=== PATIENT | male | born 1960 | race Caucasian/White ===

== ENCOUNTER 2016-04-18 07:51 | Day surgery (SDC) | payer OTHER ==
[~2016-04-18] VITALS: Ht 170.2 cm; Wt 75.0 kg
[~2016-04-18 07:51] MED LIST: DESO15OI TOP; SIMV20TA4 PO; Sodium Chloride LOK Flush 10 mL Syringe IV PRN; fentaNYL-PF 50 mCg/mL 2 mL Inj IVPUSH PRN
[2016-04-18 08:06] VITALS: BP 152/84; PULSE 61; RESP 16; O2SAT 97
[2016-04-18] MEDS: 0.9% Sodium Chloride 1,000 ML IV SCH ×2 (08:52→09:18)
[2016-04-18 09:32] VITALS: BP 119/69; PULSE 52; RESP 12; O2SAT 95
[2016-04-18 09:42] VITALS: BP 110/68; PULSE 52; RESP 12; O2SAT 95
[2016-04-18 09:52] VITALS: BP 118/72; PULSE 64; RESP 14; O2SAT 97
--- NOTE | 2016-04-18 10:51 | ENDO ---
[address] [address] ENDOSCOPY PROCEDURE PATIENT: BRENDEN JEROME : 1960 MR#: [id number] ADMIT: 04/18/2016 JOB ID: [id number] PRIMARY CARE PROVIDER: Jose Hill MD PROCEDURE: Colonoscopy with hot snare polypectomies. INDICATIONS: A 55-year-old male with a family history of colon cancer in his mom, reporting for colon cancer screening. EQUIPMENT: Novalys-H180-AL. SEDATION: 4 mg Versed and 100 mcg fentanyl. COMPLICATIONS: None identified. BOWEL PREPARATION: Fair, adequate exam. PROCEDURE INFORMATION: After the risks and benefits were explained, written and verbal informed consent was obtained. The patient was brought into the endoscopy suite and placed into the left lateral decubitus position. Sedation was achieved using the above-stated medications with the addition of oxygen via nasal cannula. A digital rectal examination was accomplished and, apart from some mild internal hemorrhoids, no other pathology appreciated. The scope was introduced into the rectum and advanced under direct visualization to the cecum as identified by the appendiceal orifice and ileocecal valve. The scope was slowly withdrawn to carefully examine the mucosa for any defects or lesions. Multiple direct views were made through the dentate line for exclusion of pathology. The colon was decompressed, the scope removed from the patient who tolerated the procedure well. FINDINGS: In the ascending colon, there were three polyps removed with hot snare. These ranged in size from about 5 mm up to about 8 mm. No other significant pathology was appreciated throughout. ENDOSCOPIC DIAGNOSES: 1. Multiple colon polyps. 2. Hemorrhoids. RECOMMENDATIONS: 1. Await histopathology. 2. Repeat colonoscopy in three years.
--- NOTE | 2016-04-19 13:29 | PATH ---
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 ICD10 CODE D12.6 GROSS DESCRIPTION: The specimen is received in one formalin filled container labeled with the patient's name, sublabeled "colon polyps X3" and consists of multiple portions of tissue which aggregate to 0.6-0.6-0.4 CM. The specimen is entirely submitted in one cassette. 04/18/2016 [facility] MICRO DESCRIPTION: See diagnosis. ICD-9 CODES: CPT CODES: 1: 48164 Electronically Signed Out Carl Salazar MD [facility] Pathology [facility] [address], [place] [address] Technical component performed at [facility], [facility] [address], [address]
== END 2016-04-18 23:59 | disposition home or self-care (01) ==
LOC: END 07:51
PROVIDERS: ATTEND Internal Medicine Gastroenterology
DX: Z12.11 Encounter for screening for malignant neoplasm of colon (principal); D12.2 Benign neoplasm of ascending colon; K64.8 Other hemorrhoids; Z80.0 Family history of malignant neoplasm of digestive organs; E78.5 Hyperlipidemia, unspecified; K21.9 Gastro-esophageal reflux disease without esophagitis
CPT/HCPCS: 45385; J2250; J7030